=== PATIENT | male | born 1960 | race African-American/Black ===

== ENCOUNTER 2020-07-24 08:24 | Emergency (ER) | payer SELFPAY ==
[~2020-07-24] VITALS: Ht 175.3 cm; Wt 72.0 kg
[2020-07-24 09:30] VITALS: BP 117/88
[2020-07-24 09:57] LABS: CHLORIDE 104 mEq/L (98-107)
[2020-07-24 10:00] LABS: CLARITY URINE CLEAR (CLEAR); COLOR URINE YELLOW (YELLOW); KETONES URINE 3+ (NEGATIVE); LEUKOCYTE ESTERASE URINE NEGATIVE (NEGATIVE); NITRITE URINE NEGATIVE (NEGATIVE); OCCULT BLOOD URINE NEGATIVE (NEGATIVE); PROTEIN URINE NEGATIVE (NEGATIVE); SPECIFIC GRAVITY URINE 1.029 (1.005-1.030); UROBILINOGEN URINE 0.2 E.U./dL (0.2-1.0)
[2020-07-24 10:02] LABS: *AMPHETAMINES SCREEN URINE PRESUMTIVE POSITIVE (NEGATIVE); *BARBITURATES SCREEN URINE NEGATIVE (NEGATIVE); *BENZODIAZEPINES SCREEN URINE NEGATIVE (NEGATIVE); *COCAINE SCREEN URINE NEGATIVE (NEGATIVE); CANNABINOID URINE SCREEN NEGATIVE (NEGATIVE); METHADONE URINE SCREEN NEGATIVE (NEGATIVE); PHENCYCLIDINE URINE SCREEN NEGATIVE (NEGATIVE)
[2020-07-24 10:03] LABS: OPIATES URINE SCREEN NEGATIVE (NEGATIVE)
[2020-07-24 10:03] LABS: ETHANOL BLOOD < 10 mg/dL
== END 2020-07-24 11:26 | disposition left against medical advice (07) ==
LOC: ER 08:50
DX: F15.188 Other stimulant abuse with other stimulant-induced disorder (principal); F16.188 Hallucinogen abuse with other hallucinogen-induced disorder; R45.4 Irritability and anger; S80.01XA Contusion of right knee, initial encounter; X58.XXXA Exposure to other specified factors, initial encounter; Y93.9 Activity, unspecified; Y92.9 Unspecified place or not applicable
CPT/HCPCS: 36415; 80053; 80305; 80307; 80320; 80329; 81003; 99283; G0480